=== PATIENT | male | born 1990 | race African-American/Black ===

== ENCOUNTER 2017-01-02 22:55 | Emergency (ER) | payer SELFPAY ==
[~2017-01-02] VITALS: Ht 172.7 cm; Wt 63.5 kg
[2017-01-03 00:25] LABS: AMPHETAMINE QUAL UR POSITIVE (NEG <=1000)
[2017-01-03 00:54] LABS: BASOPHIL % 0.4 % (0-2); PLATELET COUNT 203 x10^3mcL (130-400)
[2017-01-03 01:11] LABS: CALCIUM 8.7 mg/dL (8.5-10.1); CARBON DIOXIDE 29.7 mmol/L (21-32); CHLORIDE SERUM 102 mmol/L (98-107); CREATININE SERUM 1.1 mg/dL (0.7-1.3); GFR1 > 60 mL/min; GLUCOSE SERUM 94 mg/dL (74-106); POTASSIUM SERUM 4.2 mmol/L (3.5-5.1); SODIUM SERUM 141 mmol/L (136-145)
[2017-01-03 01:14] LABS: C REACTIVE PROTEIN < 0.2 mg/dL (<=0.9)
[2017-01-03 01:43] LABS: ERYTHROCYTE SED RATE 2 mm/hr (0-15)
[2017-01-03 01:58] VITALS: BP 128/69
== END 2017-01-03 01:58 | disposition other institution (70) ==
LOC: ED 22:55
PROVIDERS: Emergency Medicine
DX: R07.9 Chest pain, unspecified (principal); R05 Cough; G43.909 Migraine, unspecified, not intractable, without status migrainosus; E11.9 Type 2 diabetes mellitus without complications; Z79.4 Long term (current) use of insulin; Z79.899 Other long term (current) drug therapy
CPT/HCPCS: 36415; 82962; J1885

== ENCOUNTER 2017-01-02 22:55 | Emergency (ER) | payer OTHER | END 2017-01-03 01:58 | disposition other institution (70) | LOC: ED 22:55 | DX: Z02.89 Encounter for other administrative examinations (principal); R07.89 Other chest pain; R51 Headache; E11.9 Type 2 diabetes mellitus without complications ==